=== PATIENT | male | born 1960 | race Caucasian/White ===

== ENCOUNTER 2017-12-13 09:05 | Inpatient (IN) | payer SELFPAY ==
[~2017-12-13] VITALS: Ht 177.8 cm; Wt 101.5 kg
[2017-12-13] MEDS ORDERED: SODIUM CHLORIDE FLUSH 10ML SYR IVF ONE (14:00)
[2017-12-13 14:16] LABS: MEAN CORPUSCULAR HGB CONC 32.4 g/dL (33.2-36.2); MEAN CORPUSCULAR VOLUME 89.6 fL (81-97); MEAN PLATELET VOLUME 9.6 fL (7.4-10.4); PLATELET COUNT 222 x10^3/uL (130-400); RED BLOOD COUNT 4.88 x10^6/uL (4.38-5.82); RED CELL DISTRIBUTION WIDTH 12.2 % (9.4-14.8)
[2017-12-13 14:17] LABS: INTERNATIONAL NORMALIZED RATIO 0.99 (0.93-1.1); PROTHROMBIN TIME 10.2 Seconds (9.6-11.5)
[2017-12-13 14:22] LABS: ALBUMIN 3.1 g/dL (3.4-5.0); ANION GAP 13 mmol/L (5-15); CHLORIDE 95 mmol/L (98-107); CREATININE 0.82 mg/dL (0.7-1.3)
[2017-12-13] MEDS ORDERED: CEFTRIAXONE PMX 1GM/50ML 50 ML ONE (14:39)
[2017-12-13] MEDS ORDERED: SODIUM CHLORIDE 0.9% 1,000 ML IV ONE (14:42)
[2017-12-13 14:58] LABS: MD YES
[2017-12-13 15:00] LABS: <PLATELET ESTIMATE> ADEQUATE; <PLT MORPHOLOGY> NORMAL PLT MORPH; <RBC MORPHOLOGY> NORMAL; BAND#(MANUAL) 0.68 x10^3/uL; BANDS%(MANUAL) 4 % (0-7); LYMPH#(MANUAL) 0.51 x10^3/uL (1-3.4); LYMPHS% (MANUAL) 3 % (22-44); MONOS#(MANUAL) 1.86 x10^3/uL (0.3-2.7); MONOS% (MANUAL) 11 % (2-9); SEG#(MANUAL) 13.86 x10^3/uL (1.8-6.8); SEGS% (MANUAL) 82 % (42-75)
[2017-12-13] MEDS ORDERED: DOCUSATE 100 MG CAPSULE PO PRN (15:00)
[2017-12-13] MEDS ORDERED: LABETALOL 5MG/ML, 20ML IVPush PRN (15:00)
[2017-12-13] MEDS ORDERED: CEFTRIAXONE PMX 1GM/50ML 50 ML IVPB ONE (15:00)
[2017-12-13] MEDS ORDERED: POLYETHYLENE GLYCOL 17 GM PACKET PO PRN (15:00)
[2017-12-13] MEDS ORDERED: morphine SULFATE 10 MG/ML, 1ML IVPush PRN (15:00)
[2017-12-13] MEDS ORDERED: DIPHTHERIA-TETANUS ADULT 0.5ML IM-VACC ONE (15:00)
[2017-12-13] MEDS ORDERED: SODIUM CHLORIDE FLUSH 10ML SYR IVF PRN (15:00)
[2017-12-13] MEDS ORDERED: BISACODYL 10 MG SUPP PR PRN (15:00)
[2017-12-13] MEDS ORDERED: VANCOMYCIN PER PHARMACY MC PRN (15:00)
[2017-12-13] MEDS: AMPICILLIN/SULBACTAM 3 GM in SODIUM CHLORIDE 0.9% 100 ML IV SCH ×2 (15:00→23:58)
[2017-12-13] MEDS ORDERED: ACETAMINOPHEN 325 MG TABLET PO PRN ×2 (15:00→18:30)
[2017-12-13] MEDS ORDERED: DIPH,PERTUSS(ACELL),TET VAC/PF 0.5 ML IM-VACC ONE (15:30)
[2017-12-13 15:38] LABS: HEMOGLOBIN A1C 11.7 % (4.2-6.3)
[2017-12-13 15:55] VITALS: BP 168/83
[2017-12-13] MEDS: ONDANSETRON 2MG/ML, 2ML IVPush PRN (15:57)
[2017-12-13] MEDS: INSULIN LISPRO 100 UNITS/ML, PEN SQ-INSULIN SCH (16:00)
[2017-12-13] MEDS ORDERED: PHARMACOKINETIC MONITORING MC PRN (16:30)
[2017-12-13] MEDS ORDERED: PHARMACOKINETIC CONSULTATION MC ONE (16:30)
[2017-12-13] MEDS ORDERED: MIDAZOLAM 1 MG/ML, 2ML ONE (17:19)
[2017-12-13] MEDS ORDERED: FENTANYL PF 250 MCG/5ML ONE (17:19)
[2017-12-13] MEDS ORDERED: BACITRACIN 50,000 UNIT ONE (17:21)
[2017-12-13] MEDS ORDERED: SUCCINYLCHOLINE 20 MG/ML, 10ML ONE (17:58)
[2017-12-13] MEDS ORDERED: DEXAMETHASONE 4 MG/ML, 1ML ONE (17:58)
[2017-12-13] MEDS ORDERED: ONDANSETRON 2MG/ML, 2ML ONE (17:58)
[2017-12-13] MEDS ORDERED: CEFAZOLIN 1,000 MG ONE (17:58)
[2017-12-13] MEDS ORDERED: ALBUTEROL/IPRATROPIUM 2.5MG/0.5MG, 3 ML NPPB PRN (18:30)
[2017-12-13] MEDS ORDERED: MIDAZOLAM 1 MG/ML, 2ML IV PRN (18:30)
[2017-12-13] MEDS ORDERED: LABETALOL 5MG/ML, 20ML IV PRN (18:30)
[2017-12-13] MEDS ORDERED: MEPERIDINE/PF 25MG/0.5ML IVPush PRN (18:30)
[2017-12-13] MEDS ORDERED: PROMETHAZINE 12.5 MG SUPP PR PRN (18:30)
[2017-12-13] MEDS ORDERED: PROMETHAZINE 25 MG/ML, 1ML IV PRN (18:30)
[2017-12-13] MEDS ORDERED: HYDROmorphone 1 MG/ML, 1ML IV PRN (18:30)
[2017-12-13] MEDS ORDERED: ONDANSETRON 2MG/ML, 2ML IVPush PRN (18:30)
[2017-12-13] MEDS ORDERED: DIAZEPAM 5 MG/ML, 2ML IVPush PRN (18:30)
[2017-12-13] MEDS ORDERED: OXYcodone 5 MG/5 ML ORAL.SOL UDC PO PRN (18:30)
[2017-12-13] MEDS ORDERED: hydrALAzine 20 MG/ML, 1ML IV PRN (18:30)
[2017-12-13] MEDS ORDERED: FENTANYL PF 100 MCG/2ML ONE (18:46)
[2017-12-13] MEDS ORDERED: ACETAMINOPHEN 650 MG/20.3 ML UDC ONE (18:46)
[2017-12-13] MEDS ORDERED: OXYcodone 5 MG/5 ML ORAL.SOL UDC ONE (18:46)
[2017-12-13] MEDS: FENTANYL PF 100 MCG/2ML IV PRN ×3 (18:51→19:29)
[2017-12-13 19:58] VITALS: BP 115/67
[2017-12-14 00:06] VITALS: BP 122/71
[2017-12-14] MEDS: OXYcodone/APAP 5/325MG TABLET PO PRN ×3 (00:19→16:58)
[2017-12-14] MEDS: NS + 20MEQ KCL 1,000 ML IV SCH ×2 (00:19→16:58)
[2017-12-14] MEDS: INSULIN LISPRO 100 UNITS/ML, PEN SQ-INSULIN SCH ×5 (00:20→20:13)
[2017-12-14] MEDS: ONDANSETRON 2MG/ML, 2ML IVPush PRN ×3 (00:28→16:58)
[2017-12-14] MEDS: VANCOMYCIN 2,000 MG in SODIUM CHLORIDE 0.9% 500 ML IV SCH ×2 (01:42→20:13)
[2017-12-14 04:43] LABS: MEAN CORPUSCULAR HGB CONC 33.6 g/dL (33.2-36.2); MEAN CORPUSCULAR VOLUME 89.3 fL (81-97); MEAN PLATELET VOLUME 9.1 fL (7.4-10.4); PLATELET COUNT 215 x10^3/uL (130-400); RED BLOOD COUNT 4.27 x10^6/uL (4.38-5.82); RED CELL DISTRIBUTION WIDTH 12.7 % (9.4-14.8)
[2017-12-14 04:54] LABS: ANION GAP 10 mmol/L (5-15); CALCIUM 8.5 mg/dL (8.5-10.1); CHLORIDE 98 mmol/L (98-107)
[2017-12-14 04:57] LABS: CREATININE 0.98 mg/dL (0.7-1.3)
[2017-12-14 06:04] LABS: BASOPHILS # (AUTO) 0.02 x10^3/uL (0-0.1); BASOPHILS % (AUTO) 0 % (0-1); EOSINOPHILS % (AUTO) 0 % (1-7); LYMPHOCYTES # (AUTO) 1.05 x10^3/uL (1-3.4); LYMPHOCYTES % (AUTO) 5 % (22-44); MD SCAN; MONOCYTES # (AUTO) 2.42 x10^3/uL (0.2-0.8); MONOCYTES % (AUTO) 12 % (2-9); NEUTROPHILS # (AUTO) 16.23 x10^3/uL (1.8-6.8); NEUTROPHILS % (AUTO) 82 % (42-75)
[2017-12-14] MEDS: AMPICILLIN/SULBACTAM 3 GM in SODIUM CHLORIDE 0.9% 100 ML IV SCH ×2 (06:57→11:46)
[2017-12-14 07:03] VITALS: BP 122/61
[2017-12-14 07:19] VITALS: BP 115/67
[2017-12-14 13:41] VITALS: BP 118/70
[2017-12-14] MEDS: PIPERACILLIN/TAZO/PMX 3.375GM 50 ML IV SCH ×2 (16:58→23:14)
[2017-12-14] MEDS: CLINDAMYCIN PMX 900MG/50ML 50 ML IV SCH (17:55)
[2017-12-14 19:29] VITALS: BP 106/60
[2017-12-14] MEDS ORDERED: INSULIN GLARGINE 100 UNITS/ML, PEN SQ-INSULIN SCH (21:00)
[2017-12-15] MEDS: ONDANSETRON 2MG/ML, 2ML IVPush PRN ×3 (00:38→16:10)
[2017-12-15] MEDS: CLINDAMYCIN PMX 900MG/50ML 50 ML IV SCH ×3 (01:30→17:00)
[2017-12-15 02:36] VITALS: BP 149/79
[2017-12-15] MEDS: PIPERACILLIN/TAZO/PMX 3.375GM 50 ML IV SCH ×4 (04:33→23:02)
[2017-12-15 05:13] LABS: MEAN CORPUSCULAR HEMOGLOBIN 30.1 pg (27.5-34.5); MEAN CORPUSCULAR HGB CONC 33.6 g/dL (33.2-36.2); MEAN CORPUSCULAR VOLUME 89.5 fL (81-97); MEAN PLATELET VOLUME 8.3 fL (7.4-10.4); PLATELET COUNT 225 x10^3/uL (130-400); RED BLOOD COUNT 4.03 x10^6/uL (4.38-5.82); RED CELL DISTRIBUTION WIDTH 12.8 % (9.4-14.8)
[2017-12-15 05:31] LABS: ANION GAP 10 mmol/L (5-15); CALCIUM 8.2 mg/dL (8.5-10.1); CHLORIDE 97 mmol/L (98-107); CREATININE 1.05 mg/dL (0.7-1.3)
[2017-12-15] MEDS: OXYcodone/APAP 5/325MG TABLET PO PRN ×2 (05:50→20:12)
[2017-12-15 06:07] LABS: BASOPHILS # (AUTO) 0.06 x10^3/uL (0-0.1); BASOPHILS % (AUTO) 0 % (0-1); EOSINOPHILS % (AUTO) 1 % (1-7); LYMPHOCYTES % (AUTO) 6 % (22-44); MD SCAN; MONOCYTES # (AUTO) 1.67 x10^3/uL (0.2-0.8); MONOCYTES % (AUTO) 10 % (2-9); NEUTROPHILS # (AUTO) 14.29 x10^3/uL (1.8-6.8); NEUTROPHILS % (AUTO) 83 % (42-75)
[2017-12-15 07:43] VITALS: BP 143/84
[2017-12-15] MEDS: INSULIN LISPRO 100 UNITS/ML, PEN SQ-INSULIN SCH ×4 (07:47→20:13)
[2017-12-15] MEDS ORDERED: GADOBUTROL 10 MMOL/10 ML PFS ONE (11:27)
[2017-12-15 12:34] VITALS: BP 149/89
[2017-12-15] MEDS: VANCOMYCIN 2,000 MG in SODIUM CHLORIDE 0.9% 500 ML IV SCH (13:25)
[2017-12-15] MEDS: INSULIN GLARGINE 100 UNITS/ML, PEN SQ-INSULIN SCH (20:12)
[2017-12-15] MEDS: PROMETHAZINE 25 MG/ML, 1ML IM PRN (20:13)
[2017-12-15 20:27] VITALS: BP 131/78
[2017-12-16] MEDS: ONDANSETRON 2MG/ML, 2ML IVPush PRN ×3 (01:42→19:54)
[2017-12-16] MEDS: OXYcodone/APAP 5/325MG TABLET PO PRN ×3 (01:42→19:54)
[2017-12-16] MEDS: CLINDAMYCIN PMX 900MG/50ML 50 ML IV SCH ×3 (01:42→19:54)
[2017-12-16 02:18] VITALS: BP 126/81
[2017-12-16] MEDS: PIPERACILLIN/TAZO/PMX 3.375GM 50 ML IV SCH ×4 (05:41→23:46)
[2017-12-16 05:52] LABS: ALANINE AMINOTRANSFERASE 29 U/L (12-78); ALBUMIN 2.1 g/dL (3.4-5.0); ANION GAP 11 mmol/L (5-15); CALCIUM 8.7 mg/dL (8.5-10.1); CHLORIDE 100 mmol/L (98-107); CREATININE 1.23 mg/dL (0.7-1.3)
[2017-12-16 05:54] LABS: MEAN CORPUSCULAR HEMOGLOBIN 29.9 pg (27.5-34.5); MEAN CORPUSCULAR HGB CONC 33.7 g/dL (33.2-36.2); MEAN CORPUSCULAR VOLUME 88.8 fL (81-97); MEAN PLATELET VOLUME 8.3 fL (7.4-10.4); PLATELET COUNT 258 x10^3/uL (130-400); RED BLOOD COUNT 3.92 x10^6/uL (4.38-5.82); RED CELL DISTRIBUTION WIDTH 12.8 % (9.4-14.8)
[2017-12-16 06:13] LABS: ALKALINE PHOSPHATASE 147 U/L (45-117); BILIRUBIN,TOTAL 0.6 mg/dL (0.2-1.0); TOTAL PROTEIN 6.8 g/dL (6.4-8.2); VANCOMYCIN,TROUGH 11.7 mcg/mL (5.0-10.0)
[2017-12-16 06:17] VITALS: BP 125/80
[2017-12-16 06:48] LABS: MD YES
[2017-12-16 06:51] LABS: BAND#(MANUAL) 0.82 x10^3/uL; BANDS%(MANUAL) 6 % (0-7); BASOS#(MANUAL) 0.27 x10^3/uL (0-0.1); BASOS% (MANUAL) 2 % (0-1); EOS#(MANUAL) 0.68 x10^3/uL (0.0-0.4); EOS% (MANUAL) 5 % (1-7); LYMPH#(MANUAL) 1.36 x10^3/uL (1-3.4); LYMPHS% (MANUAL) 10 % (22-44); MONOS#(MANUAL) 1.36 x10^3/uL (0.3-2.7); MONOS% (MANUAL) 10 % (2-9); SEG#(MANUAL) 9.11 x10^3/uL (1.8-6.8); SEGS% (MANUAL) 67 % (42-75)
[2017-12-16 06:53] LABS: <PLATELET ESTIMATE> ADEQUATE; LARGE PLATELETS 1+; POLYCHROMASIA 1+
[2017-12-16 07:01] LABS: HCT (SEDRATE) 34.8 % (39.2-51.8)
[2017-12-16] MEDS: VANCOMYCIN 2,000 MG in SODIUM CHLORIDE 0.9% 500 ML IV SCH (08:50)
[2017-12-16] MEDS: INSULIN LISPRO 100 UNITS/ML, PEN SQ-INSULIN SCH ×4 (08:52→20:39)
[2017-12-16] MEDS ORDERED: INSULIN GLARGINE 100 UNITS/ML, PEN SQ-INSULIN SCH (10:00)
[2017-12-16] MEDS ORDERED: morphine SULFATE 10 MG/ML, 1ML ONE ×2 (12:31→12:34)
[2017-12-16] MEDS: MORPHINE SULFATE 4 MG/ML, 1ML IVPush PRN (12:37)
[2017-12-16 14:30] VITALS: BP 133/79
[2017-12-16 19:51] VITALS: BP 128/75
[2017-12-16] MEDS: INSULIN GLARGINE 100 UNITS/ML, PEN SQ-INSULIN SCH (20:40)
[2017-12-17] MEDS: MORPHINE SULFATE 4 MG/ML, 1ML IVPush PRN (00:57)
[2017-12-17] MEDS: VANCOMYCIN 2,000 MG in SODIUM CHLORIDE 0.9% 500 ML IV SCH (02:16)
[2017-12-17 03:08] VITALS: BP 139/75
[2017-12-17] MEDS: ONDANSETRON 2MG/ML, 2ML IVPush PRN ×2 (03:59→17:24)
[2017-12-17] MEDS: CLINDAMYCIN PMX 900MG/50ML 50 ML IV SCH ×3 (04:29→19:48)
[2017-12-17 05:42] LABS: MEAN CORPUSCULAR HEMOGLOBIN 29.9 pg (27.5-34.5); MEAN CORPUSCULAR HGB CONC 33.9 g/dL (33.2-36.2); MEAN CORPUSCULAR VOLUME 88.2 fL (81-97); MEAN PLATELET VOLUME 8.1 fL (7.4-10.4); PLATELET COUNT 289 x10^3/uL (130-400); RED BLOOD COUNT 3.88 x10^6/uL (4.38-5.82); RED CELL DISTRIBUTION WIDTH 13.1 % (9.4-14.8)
[2017-12-17 05:53] LABS: ANION GAP 9 mmol/L (5-15); CALCIUM 8.5 mg/dL (8.5-10.1); CHLORIDE 101 mmol/L (98-107)
[2017-12-17 05:54] LABS: CREATININE 1.29 mg/dL (0.7-1.3)
[2017-12-17] MEDS: PIPERACILLIN/TAZO/PMX 3.375GM 50 ML IV SCH ×3 (05:57→20:58)
[2017-12-17 05:59] VITALS: BP 145/87
[2017-12-17 06:53] LABS: BASOPHILS # (AUTO) 0.04 x10^3/uL (0-0.1); BASOPHILS % (AUTO) 0 % (0-1); EOSINOPHILS # (AUTO) 0.31 x10^3/uL (0-0.4); EOSINOPHILS % (AUTO) 3 % (1-7); LYMPHOCYTES % (AUTO) 10 % (22-44); MD SCAN; MONOCYTES # (AUTO) 1.42 x10^3/uL (0.2-0.8); MONOCYTES % (AUTO) 11 % (2-9); NEUTROPHILS # (AUTO) 9.44 x10^3/uL (1.8-6.8); NEUTROPHILS % (AUTO) 76 % (42-75)
[2017-12-17] MEDS: OXYcodone/APAP 5/325MG TABLET PO PRN ×2 (08:39→17:55)
[2017-12-17] MEDS: INSULIN LISPRO 100 UNITS/ML, PEN SQ-INSULIN SCH ×4 (08:41→20:58)
[2017-12-17] MEDS: INSULIN GLARGINE 100 UNITS/ML, PEN SQ-INSULIN SCH ×2 (08:45→20:59)
[2017-12-17 14:25] VITALS: BP 138/72
[2017-12-17] MEDS: PROMETHAZINE 25 MG/ML, 1ML IM PRN (18:12)
[2017-12-17 21:34] VITALS: BP 138/84
[2017-12-18 01:32] VITALS: BP 168/92
[2017-12-18] MEDS: PIPERACILLIN/TAZO/PMX 3.375GM 50 ML IV SCH ×4 (03:31→20:56)
[2017-12-18] MEDS: CLINDAMYCIN PMX 900MG/50ML 50 ML IV SCH ×3 (04:15→19:40)
[2017-12-18 06:01] LABS: BASOPHILS # (AUTO) 0.03 x10^3/uL (0-0.1); BASOPHILS % (AUTO) 0 % (0-1); EOSINOPHILS # (AUTO) 0.22 x10^3/uL (0-0.4); EOSINOPHILS % (AUTO) 2 % (1-7); LYMPHOCYTES # (AUTO) 0.95 x10^3/uL (1-3.4); LYMPHOCYTES % (AUTO) 8 % (22-44); MD NO; MEAN CORPUSCULAR HEMOGLOBIN 29.7 pg (27.5-34.5); MEAN CORPUSCULAR HGB CONC 33.4 g/dL (33.2-36.2); MEAN CORPUSCULAR VOLUME 88.9 fL (81-97); MEAN PLATELET VOLUME 8.2 fL (7.4-10.4); MONOCYTES # (AUTO) 1.17 x10^3/uL (0.2-0.8); MONOCYTES % (AUTO) 9 % (2-9); NEUTROPHILS # (AUTO) 10.12 x10^3/uL (1.8-6.8); NEUTROPHILS % (AUTO) 81 % (42-75); PLATELET COUNT 297 x10^3/uL (130-400); RED BLOOD COUNT 3.86 x10^6/uL (4.38-5.82); RED CELL DISTRIBUTION WIDTH 13.1 % (9.4-14.8)
[2017-12-18 06:07] LABS: ANION GAP 9 mmol/L (5-15); CALCIUM 8.3 mg/dL (8.5-10.1); CHLORIDE 101 mmol/L (98-107); CREATININE 1.39 mg/dL (0.7-1.3)
[2017-12-18 07:09] VITALS: BP 168/98
[2017-12-18] MEDS: INSULIN LISPRO 100 UNITS/ML, PEN SQ-INSULIN SCH ×4 (08:24→20:57)
[2017-12-18] MEDS: ONDANSETRON 2MG/ML, 2ML IVPush PRN ×3 (08:25→22:33)
[2017-12-18] MEDS: INSULIN GLARGINE 100 UNITS/ML, PEN SQ-INSULIN SCH ×2 (08:26→20:56)
[2017-12-18] MEDS: OXYcodone/APAP 5/325MG TABLET PO PRN ×2 (08:28→16:47)
[2017-12-18 15:38] VITALS: BP 144/81
[2017-12-18 20:12] VITALS: BP 150/85
[2017-12-19] MEDS: PROMETHAZINE 25 MG/ML, 1ML IM PRN (01:53)
[2017-12-19] MEDS: MORPHINE SULFATE 4 MG/ML, 1ML IVPush PRN (02:05)
[2017-12-19 02:30] VITALS: BP 159/94
[2017-12-19] MEDS: PIPERACILLIN/TAZO/PMX 3.375GM 50 ML IV SCH ×4 (02:57→21:44)
[2017-12-19] MEDS: CLINDAMYCIN PMX 900MG/50ML 50 ML IV SCH ×3 (03:30→18:15)
[2017-12-19] MEDS: INSULIN LISPRO 100 UNITS/ML, PEN SQ-INSULIN SCH ×5 (08:13→21:47)
[2017-12-19 08:18] VITALS: BP 168/90
[2017-12-19] MEDS: INSULIN GLARGINE 100 UNITS/ML, PEN SQ-INSULIN SCH ×2 (09:59→21:45)
[2017-12-19 10:25] LABS: ALANINE AMINOTRANSFERASE 26 U/L (12-78); ALBUMIN 2.5 g/dL (3.4-5.0); ANION GAP 6 mmol/L (5-15); CALCIUM 8.7 mg/dL (8.5-10.1); CHLORIDE 102 mmol/L (98-107); CREATININE 1.44 mg/dL (0.7-1.3)
[2017-12-19 10:27] LABS: ALKALINE PHOSPHATASE 132 U/L (45-117); BILIRUBIN,TOTAL 0.5 mg/dL (0.2-1.0); TOTAL PROTEIN 7.6 g/dL (6.4-8.2)
[2017-12-19 13:10] VITALS: BP 169/71
[2017-12-19 20:33] VITALS: BP 162/82
[2017-12-20] MEDS: PIPERACILLIN/TAZO/PMX 3.375GM 50 ML IV SCH ×4 (03:02→22:03)
[2017-12-20 03:26] VITALS: BP 139/77
[2017-12-20] MEDS: CLINDAMYCIN PMX 900MG/50ML 50 ML IV SCH ×3 (03:49→19:09)
[2017-12-20 04:48] LABS: HCT (SEDRATE) 36.4 % (39.2-51.8)
[2017-12-20 05:11] LABS: BASOPHILS # (AUTO) 0.02 x10^3/uL (0-0.1); BASOPHILS % (AUTO) 0 % (0-1); EOSINOPHILS % (AUTO) 3 % (1-7); LYMPHOCYTES # (AUTO) 1.09 x10^3/uL (1-3.4); LYMPHOCYTES % (AUTO) 11 % (22-44); MD NO; MEAN CORPUSCULAR HEMOGLOBIN 29.6 pg (27.5-34.5); MEAN CORPUSCULAR HGB CONC 33.3 g/dL (33.2-36.2); MEAN PLATELET VOLUME 7.7 fL (7.4-10.4); MONOCYTES # (AUTO) 1.08 x10^3/uL (0.2-0.8); MONOCYTES % (AUTO) 11 % (2-9); NEUTROPHILS # (AUTO) 7.88 x10^3/uL (1.8-6.8); NEUTROPHILS % (AUTO) 76 % (42-75); PLATELET COUNT 364 x10^3/uL (130-400); RED BLOOD COUNT 4.01 x10^6/uL (4.38-5.82); RED CELL DISTRIBUTION WIDTH 12.9 % (9.4-14.8)
[2017-12-20 07:42] VITALS: BP 168/94
[2017-12-20] MEDS: INSULIN GLARGINE 100 UNITS/ML, PEN SQ-INSULIN SCH ×2 (08:07→22:03)
[2017-12-20] MEDS: INSULIN LISPRO 100 UNITS/ML, PEN SQ-INSULIN SCH ×4 (08:07→22:04)
[2017-12-20 19:24] VITALS: BP 172/82
[2017-12-21] MEDS: PIPERACILLIN/TAZO/PMX 3.375GM 50 ML IV SCH ×4 (03:02→22:56)
[2017-12-21 03:15] VITALS: BP 172/93
[2017-12-21] MEDS: CLINDAMYCIN PMX 900MG/50ML 50 ML IV SCH ×3 (04:13→21:06)
[2017-12-21 05:46] LABS: BASOPHILS # (AUTO) 0.02 x10^3/uL (0-0.1); BASOPHILS % (AUTO) 0 % (0-1); EOSINOPHILS # (AUTO) 0.26 x10^3/uL (0-0.4); EOSINOPHILS % (AUTO) 3 % (1-7); LYMPHOCYTES # (AUTO) 1.13 x10^3/uL (1-3.4); LYMPHOCYTES % (AUTO) 13 % (22-44); MD NO; MEAN CORPUSCULAR HEMOGLOBIN 29.8 pg (27.5-34.5); MEAN CORPUSCULAR HGB CONC 33.7 g/dL (33.2-36.2); MEAN CORPUSCULAR VOLUME 88.3 fL (81-97); MEAN PLATELET VOLUME 8.1 fL (7.4-10.4); MONOCYTES # (AUTO) 0.96 x10^3/uL (0.2-0.8); MONOCYTES % (AUTO) 11 % (2-9); NEUTROPHILS # (AUTO) 6.08 x10^3/uL (1.8-6.8); NEUTROPHILS % (AUTO) 72 % (42-75); PLATELET COUNT 385 x10^3/uL (130-400); RED BLOOD COUNT 4.14 x10^6/uL (4.38-5.82); RED CELL DISTRIBUTION WIDTH 12.8 % (9.4-14.8)
[2017-12-21 07:27] VITALS: BP 176/91
[2017-12-21] MEDS: INSULIN LISPRO 100 UNITS/ML, PEN SQ-INSULIN SCH ×4 (07:58→21:14)
[2017-12-21] MEDS: INSULIN GLARGINE 100 UNITS/ML, PEN SQ-INSULIN SCH ×2 (08:00→21:15)
[2017-12-21 13:35] VITALS: BP 181/96
[2017-12-21 20:47] VITALS: BP 173/95
[2017-12-22 02:51] VITALS: BP 162/90
[2017-12-22] MEDS: PIPERACILLIN/TAZO/PMX 3.375GM 50 ML IV SCH ×4 (04:56→23:50)
[2017-12-22] MEDS: CLINDAMYCIN PMX 900MG/50ML 50 ML IV SCH ×3 (05:37→22:50)
[2017-12-22 07:40] VITALS: BP 169/92
[2017-12-22] MEDS: INSULIN LISPRO 100 UNITS/ML, PEN SQ-INSULIN SCH ×4 (07:54→20:21)
[2017-12-22] MEDS: INSULIN GLARGINE 100 UNITS/ML, PEN SQ-INSULIN SCH ×2 (07:55→20:22)
[2017-12-22 13:20] VITALS: BP 158/84
[2017-12-22 19:10] VITALS: BP 175/91
[2017-12-22] MEDS: HEPARIN 5,000 UNITS/ML, 1ML SQ SCH (21:36)
[2017-12-23 03:23] VITALS: BP 172/89
[2017-12-23] MEDS: HEPARIN 5,000 UNITS/ML, 1ML SQ SCH ×3 (05:00→20:39)
[2017-12-23] MEDS: PIPERACILLIN/TAZO/PMX 3.375GM 50 ML IV SCH ×4 (05:08→22:36)
[2017-12-23 05:28] LABS: ANION GAP 8 mmol/L (5-15); CALCIUM 9.1 mg/dL (8.5-10.1); CHLORIDE 101 mmol/L (98-107); CREATININE 1.45 mg/dL (0.7-1.3)
[2017-12-23 07:00] VITALS: BP 161/87
[2017-12-23] MEDS: INSULIN LISPRO 100 UNITS/ML, PEN SQ-INSULIN SCH ×4 (08:39→20:38)
[2017-12-23] MEDS: INSULIN GLARGINE 100 UNITS/ML, PEN SQ-INSULIN SCH ×2 (08:40→20:38)
[2017-12-23] MEDS: CLINDAMYCIN PMX 900MG/50ML 50 ML IV SCH ×3 (08:40→23:42)
[2017-12-23] MEDS: LISINOPRIL 5 MG TABLET PO SCH (10:46)
[2017-12-23] MEDS ORDERED: hydrALAzine 20 MG/ML, 1ML IV PRN (12:00)
[2017-12-23] MEDS ORDERED: PHARMACY MAY ADJ FOR RENAL FX MC PRN (12:00)
[2017-12-23] MEDS: metFORMIN 500 MG TABLET PO SCH ×2 (13:17→17:00)
[2017-12-23 13:54] VITALS: BP 99/62
[2017-12-23 19:23] VITALS: BP 146/84
[2017-12-24 03:57] VITALS: BP 148/89
[2017-12-24] MEDS: PIPERACILLIN/TAZO/PMX 3.375GM 50 ML IV SCH ×4 (04:52→22:54)
[2017-12-24] MEDS: HEPARIN 5,000 UNITS/ML, 1ML SQ SCH ×3 (04:52→20:49)
[2017-12-24 07:14] VITALS: BP 145/82
[2017-12-24 07:21] LABS: ANION GAP 9 mmol/L (5-15); CHLORIDE 102 mmol/L (98-107); CREATININE 1.51 mg/dL (0.7-1.3)
[2017-12-24] MEDS: CLINDAMYCIN PMX 900MG/50ML 50 ML IV SCH ×2 (09:23→18:23)
[2017-12-24] MEDS: LISINOPRIL 5 MG TABLET PO SCH (09:24)
[2017-12-24] MEDS: metFORMIN 500 MG TABLET PO SCH ×2 (09:24→17:14)
[2017-12-24] MEDS: INSULIN GLARGINE 100 UNITS/ML, PEN SQ-INSULIN SCH ×2 (09:25→20:49)
[2017-12-24] MEDS: INSULIN LISPRO 100 UNITS/ML, PEN SQ-INSULIN SCH ×4 (09:26→20:49)
[2017-12-24 13:56] VITALS: BP 122/76
[2017-12-24 19:22] VITALS: BP 138/79
[2017-12-25] MEDS: CLINDAMYCIN PMX 900MG/50ML 50 ML IV SCH ×3 (01:15→18:17)
[2017-12-25 01:58] VITALS: BP 130/69
[2017-12-25] MEDS: HEPARIN 5,000 UNITS/ML, 1ML SQ SCH ×3 (05:03→19:27)
[2017-12-25] MEDS: PIPERACILLIN/TAZO/PMX 3.375GM 50 ML IV SCH ×4 (05:03→23:42)
[2017-12-25 06:42] LABS: ANION GAP 6 mmol/L (5-15); CALCIUM 8.8 mg/dL (8.5-10.1); CHLORIDE 101 mmol/L (98-107); CREATININE 1.67 mg/dL (0.7-1.3)
[2017-12-25 07:55] VITALS: BP 146/83
[2017-12-25] MEDS: INSULIN GLARGINE 100 UNITS/ML, PEN SQ-INSULIN SCH ×2 (08:55→20:06)
[2017-12-25] MEDS: metFORMIN 500 MG TABLET PO SCH ×2 (08:56→18:16)
[2017-12-25] MEDS: INSULIN LISPRO 100 UNITS/ML, PEN SQ-INSULIN SCH ×4 (08:56→20:05)
[2017-12-25] MEDS: LISINOPRIL 5 MG TABLET PO SCH (08:56)
[2017-12-25 13:51] VITALS: BP 108/65
[2017-12-25 20:12] VITALS: BP 151/86
[2017-12-26] MEDS: CLINDAMYCIN PMX 900MG/50ML 50 ML IV SCH ×3 (01:41→17:09)
[2017-12-26 01:44] VITALS: BP 143/81
[2017-12-26] MEDS: HEPARIN 5,000 UNITS/ML, 1ML SQ SCH ×3 (05:10→20:59)
[2017-12-26] MEDS: PIPERACILLIN/TAZO/PMX 3.375GM 50 ML IV SCH ×4 (05:12→22:44)
[2017-12-26 07:02] VITALS: BP 131/82
[2017-12-26] MEDS: INSULIN LISPRO 100 UNITS/ML, PEN SQ-INSULIN SCH ×4 (07:51→21:20)
[2017-12-26] MEDS: metFORMIN 500 MG TABLET PO SCH ×2 (08:03→17:09)
[2017-12-26] MEDS: LISINOPRIL 5 MG TABLET PO SCH (08:03)
[2017-12-26] MEDS: INSULIN GLARGINE 100 UNITS/ML, PEN SQ-INSULIN SCH ×2 (08:03→21:20)
[2017-12-26 14:51] VITALS: BP 143/83
[2017-12-26 20:08] VITALS: BP 134/85
[2017-12-27] MEDS: CLINDAMYCIN PMX 900MG/50ML 50 ML IV SCH ×2 (01:04→08:31)
[2017-12-27] MEDS: HEPARIN 5,000 UNITS/ML, 1ML SQ SCH ×3 (03:56→21:30)
[2017-12-27] MEDS: PIPERACILLIN/TAZO/PMX 3.375GM 50 ML IV SCH ×2 (04:46→11:34)
[2017-12-27 04:47] VITALS: BP 142/90
[2017-12-27 05:36] LABS: ALBUMIN 2.6 g/dL (3.4-5.0); ANION GAP 8 mmol/L (5-15); CHLORIDE 102 mmol/L (98-107)
[2017-12-27 05:46] LABS: ALANINE AMINOTRANSFERASE 13 U/L (12-78); ALKALINE PHOSPHATASE 73 U/L (45-117); BILIRUBIN,TOTAL 0.4 mg/dL (0.2-1.0); CREATININE 1.57 mg/dL (0.7-1.3); TOTAL PROTEIN 7.8 g/dL (6.4-8.2)
[2017-12-27 05:58] LABS: BASOPHILS # (AUTO) 0.08 x10^3/uL (0-0.1); BASOPHILS % (AUTO) 1 % (0-1); EOSINOPHILS # (AUTO) 0.44 x10^3/uL (0-0.4); EOSINOPHILS % (AUTO) 6 % (1-7); LYMPHOCYTES # (AUTO) 0.98 x10^3/uL (1-3.4); LYMPHOCYTES % (AUTO) 12 % (22-44); MD NO; MEAN CORPUSCULAR HEMOGLOBIN 29.6 pg (27.5-34.5); MEAN CORPUSCULAR VOLUME 89.7 fL (81-97); MEAN PLATELET VOLUME 8.5 fL (7.4-10.4); MONOCYTES # (AUTO) 0.86 x10^3/uL (0.2-0.8); MONOCYTES % (AUTO) 11 % (2-9); NEUTROPHILS # (AUTO) 5.66 x10^3/uL (1.8-6.8); NEUTROPHILS % (AUTO) 71 % (42-75); PLATELET COUNT 456 x10^3/uL (130-400); RED CELL DISTRIBUTION WIDTH 12.8 % (9.4-14.8)
[2017-12-27 06:18] LABS: HCT (SEDRATE) 36.6 % (39.2-51.8)
[2017-12-27] MEDS ORDERED: ONDANSETRON 2MG/ML, 2ML IVPush PRN (07:00)
[2017-12-27] MEDS: INSULIN LISPRO 100 UNITS/ML, PEN SQ-INSULIN SCH ×4 (07:00→21:26)
[2017-12-27 07:20] VITALS: BP 136/79
[2017-12-27] MEDS: LACTATED RINGERS 1,000 ML IV SCH (08:30)
[2017-12-27] MEDS: LISINOPRIL 5 MG TABLET PO SCH (08:31)
[2017-12-27] MEDS: metFORMIN 500 MG TABLET PO SCH ×2 (08:31→17:03)
[2017-12-27] MEDS: INSULIN GLARGINE 100 UNITS/ML, PEN SQ-INSULIN SCH ×2 (08:32→21:26)
[2017-12-27 13:28] VITALS: BP 146/80
[2017-12-27] MEDS: AMPICILLIN/SULBACTAM 3 GM in SODIUM CHLORIDE 0.9% 100 ML IV SCH ×2 (14:21→19:33)
[2017-12-27 19:56] VITALS: BP 137/81
[2017-12-28] MEDS: AMPICILLIN/SULBACTAM 3 GM in SODIUM CHLORIDE 0.9% 100 ML IV SCH ×4 (01:13→20:19)
[2017-12-28 01:32] VITALS: BP 139/89
[2017-12-28] MEDS: LACTATED RINGERS 1,000 ML IV SCH (02:34)
[2017-12-28] MEDS: HEPARIN 5,000 UNITS/ML, 1ML SQ SCH ×3 (06:02→20:20)
[2017-12-28] MEDS: INSULIN LISPRO 100 UNITS/ML, PEN SQ-INSULIN SCH ×4 (07:00→20:20)
[2017-12-28 07:09] VITALS: BP 155/92
[2017-12-28 07:31] LABS: CREATININE 1.39 mg/dL (0.7-1.3)
[2017-12-28 08:30] VITALS: BP 141/91
[2017-12-28] MEDS: metFORMIN 500 MG TABLET PO SCH ×2 (11:25→17:03)
[2017-12-28] MEDS: LISINOPRIL 5 MG TABLET PO SCH (11:26)
[2017-12-28] MEDS: INSULIN GLARGINE 100 UNITS/ML, PEN SQ-INSULIN SCH ×2 (11:52→20:20)
[2017-12-28 13:28] VITALS: BP 152/84
[2017-12-28 19:05] VITALS: BP 160/88
[2017-12-29] MEDS: AMPICILLIN/SULBACTAM 3 GM in SODIUM CHLORIDE 0.9% 100 ML IV SCH ×4 (01:34→20:21)
[2017-12-29 02:14] VITALS: BP 138/81
[2017-12-29] MEDS: HEPARIN 5,000 UNITS/ML, 1ML SQ SCH ×3 (05:04→20:15)
[2017-12-29 08:52] VITALS: BP 140/84
[2017-12-29] MEDS: LISINOPRIL 5 MG TABLET PO SCH (09:14)
[2017-12-29] MEDS: metFORMIN 500 MG TABLET PO SCH ×2 (09:14→17:25)
[2017-12-29] MEDS: INSULIN GLARGINE 100 UNITS/ML, PEN SQ-INSULIN SCH ×2 (09:15→20:22)
[2017-12-29] MEDS: INSULIN LISPRO 100 UNITS/ML, PEN SQ-INSULIN SCH ×4 (09:15→20:15)
[2017-12-29] MEDS: METOCLOPRAMIDE 10MG TABLET PO SCH ×2 (13:17→21:32)
[2017-12-29 14:03] VITALS: BP 159/88
[2017-12-29 19:01] VITALS: BP 150/85
[2017-12-30 01:07] VITALS: BP 137/85
[2017-12-30] MEDS: AMPICILLIN/SULBACTAM 3 GM in SODIUM CHLORIDE 0.9% 100 ML IV SCH ×4 (02:32→20:16)
[2017-12-30] MEDS: HEPARIN 5,000 UNITS/ML, 1ML SQ SCH ×3 (04:25→19:44)
[2017-12-30] MEDS: METOCLOPRAMIDE 10MG TABLET PO SCH ×3 (04:25→19:43)
[2017-12-30 07:23] VITALS: BP 132/84
[2017-12-30] MEDS: LISINOPRIL 5 MG TABLET PO SCH (08:34)
[2017-12-30] MEDS: metFORMIN 500 MG TABLET PO SCH ×2 (08:34→17:49)
[2017-12-30] MEDS: INSULIN GLARGINE 100 UNITS/ML, PEN SQ-INSULIN SCH ×2 (08:44→20:17)
[2017-12-30] MEDS: INSULIN LISPRO 100 UNITS/ML, PEN SQ-INSULIN SCH ×4 (08:44→20:18)
[2017-12-30 14:14] VITALS: BP 147/84
[2017-12-30 19:42] VITALS: BP 163/93
[2017-12-31] MEDS: AMPICILLIN/SULBACTAM 3 GM in SODIUM CHLORIDE 0.9% 100 ML IV SCH ×4 (00:57→20:21)
[2017-12-31] MEDS: HEPARIN 5,000 UNITS/ML, 1ML SQ SCH ×3 (00:57→20:20)
[2017-12-31 01:28] VITALS: BP 148/89
[2017-12-31] MEDS: METOCLOPRAMIDE 10MG TABLET PO SCH (01:28)
[2017-12-31 06:18] LABS: BASOPHILS % (AUTO) 1 % (0-1); EOSINOPHILS # (AUTO) 0.53 x10^3/uL (0-0.4); EOSINOPHILS % (AUTO) 7 % (1-7); LYMPHOCYTES # (AUTO) 1.46 x10^3/uL (1-3.4); LYMPHOCYTES % (AUTO) 18 % (22-44); MD NO; MEAN CORPUSCULAR HEMOGLOBIN 29.2 pg (27.5-34.5); MEAN CORPUSCULAR HGB CONC 33.3 g/dL (33.2-36.2); MEAN CORPUSCULAR VOLUME 87.7 fL (81-97); MEAN PLATELET VOLUME 8.2 fL (7.4-10.4); MONOCYTES # (AUTO) 0.83 x10^3/uL (0.2-0.8); MONOCYTES % (AUTO) 10 % (2-9); NEUTROPHILS # (AUTO) 5.04 x10^3/uL (1.8-6.8); NEUTROPHILS % (AUTO) 63 % (42-75); PLATELET COUNT 427 x10^3/uL (130-400); RED BLOOD COUNT 4.38 x10^6/uL (4.38-5.82); RED CELL DISTRIBUTION WIDTH 12.8 % (9.4-14.8)
[2017-12-31 06:28] LABS: ANION GAP 9 mmol/L (5-15); CALCIUM 9.9 mg/dL (8.5-10.1); CHLORIDE 104 mmol/L (98-107); CREATININE 1.34 mg/dL (0.7-1.3)
[2017-12-31] MEDS: INSULIN LISPRO 100 UNITS/ML, PEN SQ-INSULIN SCH ×4 (07:00→20:24)
[2017-12-31 08:37] VITALS: BP 151/84
[2017-12-31] MEDS: LISINOPRIL 5 MG TABLET PO SCH (09:00)
[2017-12-31] MEDS: metFORMIN 500 MG TABLET PO SCH ×2 (09:09→17:39)
[2017-12-31] MEDS: INSULIN GLARGINE 100 UNITS/ML, PEN SQ-INSULIN SCH ×2 (09:10→20:27)
[2017-12-31 13:15] VITALS: BP 124/74
[2017-12-31 19:49] VITALS: BP 149/91
[2018-01-01 02:38] VITALS: BP 128/81
[2018-01-01] MEDS: AMPICILLIN/SULBACTAM 3 GM in SODIUM CHLORIDE 0.9% 100 ML IV SCH ×4 (02:50→20:39)
[2018-01-01] MEDS: HEPARIN 5,000 UNITS/ML, 1ML SQ SCH ×3 (05:00→20:39)
[2018-01-01] MEDS: INSULIN LISPRO 100 UNITS/ML, PEN SQ-INSULIN SCH ×4 (07:00→20:39)
[2018-01-01 07:08] VITALS: BP 144/90
[2018-01-01] MEDS: INSULIN GLARGINE 100 UNITS/ML, PEN SQ-INSULIN SCH ×2 (08:42→20:41)
[2018-01-01] MEDS: metFORMIN 500 MG TABLET PO SCH ×2 (08:42→16:25)
[2018-01-01] MEDS: LISINOPRIL 5 MG TABLET PO SCH (08:43)
[2018-01-01 14:24] VITALS: BP 141/89
[2018-01-01 19:32] VITALS: BP 126/67
[2018-01-02 01:57] VITALS: BP 135/78
[2018-01-02] MEDS: AMPICILLIN/SULBACTAM 3 GM in SODIUM CHLORIDE 0.9% 100 ML IV SCH ×4 (03:12→20:46)
[2018-01-02] MEDS: HEPARIN 5,000 UNITS/ML, 1ML SQ SCH ×3 (04:43→20:44)
[2018-01-02] MEDS: INSULIN LISPRO 100 UNITS/ML, PEN SQ-INSULIN SCH ×4 (07:00→20:44)
[2018-01-02] MEDS: LISINOPRIL 5 MG TABLET PO SCH (07:25)
[2018-01-02 07:47] VITALS: BP 128/85
[2018-01-02] MEDS: metFORMIN 500 MG TABLET PO SCH ×2 (07:53→17:24)
[2018-01-02] MEDS: INSULIN GLARGINE 100 UNITS/ML, PEN SQ-INSULIN SCH ×2 (07:54→21:04)
[2018-01-02 13:29] VITALS: BP 146/89
[2018-01-02 22:33] VITALS: BP 164/90
[2018-01-03 02:07] VITALS: BP 132/85
[2018-01-03] MEDS: AMPICILLIN/SULBACTAM 3 GM in SODIUM CHLORIDE 0.9% 100 ML IV SCH ×4 (03:07→20:31)
[2018-01-03] MEDS: HEPARIN 5,000 UNITS/ML, 1ML SQ SCH ×3 (04:28→20:18)
[2018-01-03 05:50] LABS: CHLORIDE 103 mmol/L (98-107)
[2018-01-03 06:06] LABS: ALANINE AMINOTRANSFERASE 15 U/L (12-78); ALBUMIN 2.8 g/dL (3.4-5.0); ALKALINE PHOSPHATASE 80 U/L (45-117); ANION GAP 8 mmol/L (5-15); BILIRUBIN,TOTAL 0.7 mg/dL (0.2-1.0); C-REACTIVE PROTEIN, QUANT 0.99 mg/dL (0.02-0.49); CALCIUM 8.7 mg/dL (8.5-10.1); CREATININE 1.23 mg/dL (0.7-1.3); TOTAL PROTEIN 7.8 g/dL (6.4-8.2)
[2018-01-03 06:14] LABS: BASOPHILS # (AUTO) 0.12 x10^3/uL (0-0.1); BASOPHILS % (AUTO) 2 % (0-1); EOSINOPHILS # (AUTO) 0.64 x10^3/uL (0-0.4); EOSINOPHILS % (AUTO) 9 % (1-7); LYMPHOCYTES # (AUTO) 1.23 x10^3/uL (1-3.4); LYMPHOCYTES % (AUTO) 18 % (22-44); MD NO; MEAN CORPUSCULAR HEMOGLOBIN 29.7 pg (27.5-34.5); MEAN CORPUSCULAR HGB CONC 33.9 g/dL (33.2-36.2); MEAN CORPUSCULAR VOLUME 87.8 fL (81-97); MEAN PLATELET VOLUME 8.6 fL (7.4-10.4); MONOCYTES # (AUTO) 0.82 x10^3/uL (0.2-0.8); MONOCYTES % (AUTO) 12 % (2-9); NEUTROPHILS # (AUTO) 4.19 x10^3/uL (1.8-6.8); NEUTROPHILS % (AUTO) 60 % (42-75); PLATELET COUNT 301 x10^3/uL (130-400); RED CELL DISTRIBUTION WIDTH 12.9 % (9.4-14.8)
[2018-01-03 06:37] LABS: HCT (SEDRATE) 38.4 % (39.2-51.8)
[2018-01-03] MEDS: INSULIN LISPRO 100 UNITS/ML, PEN SQ-INSULIN SCH ×4 (07:00→20:39)
[2018-01-03] MEDS: LISINOPRIL 5 MG TABLET PO SCH (07:19)
[2018-01-03] MEDS: metFORMIN 500 MG TABLET PO SCH ×2 (07:32→16:35)
[2018-01-03] MEDS: INSULIN GLARGINE 100 UNITS/ML, PEN SQ-INSULIN SCH ×2 (07:32→20:39)
[2018-01-03 07:41] VITALS: BP 142/88
[2018-01-03 13:52] VITALS: BP 139/89
[2018-01-03 19:21] VITALS: BP 156/88
[2018-01-04 01:40] VITALS: BP 149/82
[2018-01-04] MEDS: AMPICILLIN/SULBACTAM 3 GM in SODIUM CHLORIDE 0.9% 100 ML IV SCH ×4 (03:07→21:29)
[2018-01-04] MEDS: HEPARIN 5,000 UNITS/ML, 1ML SQ SCH ×3 (04:01→21:00)
[2018-01-04 07:30] VITALS: BP 155/92
[2018-01-04] MEDS: metFORMIN 500 MG TABLET PO SCH ×2 (08:06→16:46)
[2018-01-04] MEDS: LISINOPRIL 5 MG TABLET PO SCH (08:07)
[2018-01-04] MEDS: INSULIN LISPRO 100 UNITS/ML, PEN SQ-INSULIN SCH ×4 (08:07→21:00)
[2018-01-04] MEDS: INSULIN GLARGINE 100 UNITS/ML, PEN SQ-INSULIN SCH ×2 (09:37→21:30)
[2018-01-04 12:20] VITALS: BP 159/87
[2018-01-04 19:42] VITALS: BP 147/82
[2018-01-05] MEDS: AMPICILLIN/SULBACTAM 3 GM in SODIUM CHLORIDE 0.9% 100 ML IV SCH ×4 (03:12→20:38)
[2018-01-05] MEDS: HEPARIN 5,000 UNITS/ML, 1ML SQ SCH ×3 (04:04→20:39)
[2018-01-05 05:09] VITALS: BP 136/77
[2018-01-05 07:00] VITALS: BP 139/83
[2018-01-05] MEDS: INSULIN LISPRO 100 UNITS/ML, PEN SQ-INSULIN SCH ×4 (07:00→20:40)
[2018-01-05] MEDS: LISINOPRIL 5 MG TABLET PO SCH (08:13)
[2018-01-05] MEDS: metFORMIN 500 MG TABLET PO SCH ×2 (08:35→17:15)
[2018-01-05] MEDS: INSULIN GLARGINE 100 UNITS/ML, PEN SQ-INSULIN SCH ×2 (08:36→20:39)
[2018-01-05 13:35] VITALS: BP 167/94
[2018-01-05 19:28] VITALS: BP 112/77
[2018-01-06] MEDS: AMPICILLIN/SULBACTAM 3 GM in SODIUM CHLORIDE 0.9% 100 ML IV SCH ×4 (03:11→21:19)
[2018-01-06 03:33] VITALS: BP 130/85
[2018-01-06] MEDS: HEPARIN 5,000 UNITS/ML, 1ML SQ SCH ×3 (03:54→21:00)
[2018-01-06] MEDS: INSULIN LISPRO 100 UNITS/ML, PEN SQ-INSULIN SCH ×4 (07:00→21:18)
[2018-01-06 07:10] VITALS: BP 125/75
[2018-01-06] MEDS: LISINOPRIL 5 MG TABLET PO SCH (08:04)
[2018-01-06] MEDS: metFORMIN 500 MG TABLET PO SCH ×2 (09:22→17:25)
[2018-01-06] MEDS: INSULIN GLARGINE 100 UNITS/ML, PEN SQ-INSULIN SCH ×2 (09:22→21:18)
[2018-01-06 13:58] VITALS: BP 144/84
[2018-01-06 19:16] VITALS: BP 144/93
[2018-01-07 00:50] VITALS: BP 133/78
[2018-01-07] MEDS: AMPICILLIN/SULBACTAM 3 GM in SODIUM CHLORIDE 0.9% 100 ML IV SCH ×4 (03:14→20:53)
[2018-01-07] MEDS: HEPARIN 5,000 UNITS/ML, 1ML SQ SCH ×3 (03:58→20:54)
[2018-01-07] MEDS: INSULIN LISPRO 100 UNITS/ML, PEN SQ-INSULIN SCH ×4 (07:00→20:54)
[2018-01-07] MEDS: LISINOPRIL 5 MG TABLET PO SCH (08:46)
[2018-01-07] MEDS: metFORMIN 500 MG TABLET PO SCH ×2 (08:53→17:25)
[2018-01-07] MEDS: INSULIN GLARGINE 100 UNITS/ML, PEN SQ-INSULIN SCH ×2 (08:54→20:54)
[2018-01-07 14:45] VITALS: BP 136/89
[2018-01-07 19:23] VITALS: BP 123/75
[2018-01-08 00:26] VITALS: BP 122/69
[2018-01-08] MEDS: AMPICILLIN/SULBACTAM 3 GM in SODIUM CHLORIDE 0.9% 100 ML IV SCH ×4 (03:13→21:31)
[2018-01-08] MEDS: HEPARIN 5,000 UNITS/ML, 1ML SQ SCH ×3 (05:00→21:31)
[2018-01-08] MEDS: INSULIN LISPRO 100 UNITS/ML, PEN SQ-INSULIN SCH ×4 (07:00→21:32)
[2018-01-08 07:20] VITALS: BP 146/92
[2018-01-08] MEDS: LISINOPRIL 5 MG TABLET PO SCH ×2 (08:51→08:53)
[2018-01-08] MEDS: metFORMIN 500 MG TABLET PO SCH ×2 (08:51→17:02)
[2018-01-08] MEDS: INSULIN GLARGINE 100 UNITS/ML, PEN SQ-INSULIN SCH ×2 (08:52→21:31)
[2018-01-08 13:50] VITALS: BP 149/86
[2018-01-08 20:46] VITALS: BP 121/80
[2018-01-09 01:32] VITALS: BP 140/89
[2018-01-09] MEDS: AMPICILLIN/SULBACTAM 3 GM in SODIUM CHLORIDE 0.9% 100 ML IV SCH ×3 (03:18→15:51)
[2018-01-09] MEDS: HEPARIN 5,000 UNITS/ML, 1ML SQ SCH ×3 (06:23→20:52)
[2018-01-09] MEDS: INSULIN LISPRO 100 UNITS/ML, PEN SQ-INSULIN SCH ×4 (07:00→20:52)
[2018-01-09 07:28] VITALS: BP 161/93
[2018-01-09] MEDS: INSULIN GLARGINE 100 UNITS/ML, PEN SQ-INSULIN SCH ×2 (08:58→20:52)
[2018-01-09] MEDS: metFORMIN 500 MG TABLET PO SCH ×2 (08:59→15:56)
[2018-01-09] MEDS: LISINOPRIL 5 MG TABLET PO SCH (08:59)
[2018-01-09] MEDS ORDERED: METF500T PO (13:45)
[2018-01-09] MEDS ORDERED: LISI5TAB7 PO (13:45)
[2018-01-09] MEDS ORDERED: INSU100I13 SQ-INSULIN ×2 (13:45)
[2018-01-09 19:31] VITALS: BP 135/80
[2018-01-09] MEDS: AMOXICILLIN/CLAV 500-125MG TABLET PO SCH (20:48)
[2018-01-10 03:37] VITALS: BP 127/74
[2018-01-10] MEDS: AMOXICILLIN/CLAV 500-125MG TABLET PO SCH ×2 (04:46→11:52)
[2018-01-10] MEDS: HEPARIN 5,000 UNITS/ML, 1ML SQ SCH ×2 (04:46→11:52)
[2018-01-10 05:29] LABS: BASOPHILS # (AUTO) 0.12 x10^3/uL (0-0.1); BASOPHILS % (AUTO) 2 % (0-1); EOSINOPHILS # (AUTO) 1.03 x10^3/uL (0-0.4); EOSINOPHILS % (AUTO) 17 % (1-7); LYMPHOCYTES # (AUTO) 1.12 x10^3/uL (1-3.4); LYMPHOCYTES % (AUTO) 19 % (22-44); MD NO; MEAN CORPUSCULAR HEMOGLOBIN 28.8 pg (27.5-34.5); MEAN CORPUSCULAR HGB CONC 33.3 g/dL (33.2-36.2); MEAN CORPUSCULAR VOLUME 86.4 fL (81-97); MEAN PLATELET VOLUME 9.1 fL (7.4-10.4); MONOCYTES # (AUTO) 0.82 x10^3/uL (0.2-0.8); MONOCYTES % (AUTO) 14 % (2-9); NEUTROPHILS # (AUTO) 2.92 x10^3/uL (1.8-6.8); NEUTROPHILS % (AUTO) 49 % (42-75); PLATELET COUNT 218 x10^3/uL (130-400); RED BLOOD COUNT 3.97 x10^6/uL (4.38-5.82); RED CELL DISTRIBUTION WIDTH 12.7 % (9.4-14.8)
[2018-01-10 05:33] LABS: ANION GAP 8 mmol/L (5-15); CALCIUM 8.8 mg/dL (8.5-10.1); CHLORIDE 101 mmol/L (98-107)
[2018-01-10 05:36] LABS: ALANINE AMINOTRANSFERASE 25 U/L (12-78); ALKALINE PHOSPHATASE 88 U/L (45-117); BILIRUBIN,TOTAL 0.7 mg/dL (0.2-1.0); C-REACTIVE PROTEIN, QUANT 0.55 mg/dL (0.02-0.49); CREATININE 1.17 mg/dL (0.7-1.3); TOTAL PROTEIN 7.9 g/dL (6.4-8.2)
[2018-01-10 06:24] LABS: HCT (SEDRATE) 34.3 % (39.2-51.8)
[2018-01-10 08:00] VITALS: BP 119/75
[2018-01-10] MEDS: INSULIN LISPRO 100 UNITS/ML, PEN SQ-INSULIN SCH ×3 (09:10→16:13)
[2018-01-10] MEDS: metFORMIN 500 MG TABLET PO SCH ×2 (09:10→16:12)
[2018-01-10] MEDS: LISINOPRIL 5 MG TABLET PO SCH (09:10)
[2018-01-10] MEDS: INSULIN GLARGINE 100 UNITS/ML, PEN SQ-INSULIN SCH (09:11)
[2018-01-10 14:30] VITALS: BP 137/80
[2018-01-10] MEDS ORDERED: AMOX1TAB61 PO (15:59)
== END 2018-01-10 16:39 | disposition home or self-care (01) | DRG 854 ==
LOC: ED 13:57 → EDIP 14:43 → 3NE 15:46 → DCLOUNGE 01-10 16:30
PROVIDERS: ADMIT Internal Medicine; ATTEND Family Medicine
PROC: 0JBK0ZZ Excision of Left Hand Subcutaneous Tissue and Fascia, Open Approach (ICD-10-PCS; principal; 2017-12-13 18:30)
DX: A41.9 Sepsis, unspecified organism (principal); E44.0 Moderate protein-calorie malnutrition; E11.22 Type 2 diabetes mellitus with diabetic chronic kidney disease; E11.65 Type 2 diabetes mellitus with hyperglycemia; E87.1 Hypo-osmolality and hyponatremia; L02.512 Cutaneous abscess of left hand; L03.114 Cellulitis of left upper limb; D63.8 Anemia in other chronic diseases classified elsewhere; E66.9 Obesity, unspecified; I12.9 Hypertensive chronic kidney disease with stage 1 through stage 4 chronic kidney disease, or unspecified chronic kidney disease; J44.9 Chronic obstructive pulmonary disease, unspecified; M65.9 Synovitis and tenosynovitis, unspecified; N18.2 Chronic kidney disease, stage 2 (mild); W26.0XXA Contact with knife, initial encounter; Z66 Do not resuscitate; Z79.84 Long term (current) use of oral hypoglycemic drugs; Z82.49 Family history of ischemic heart disease and other diseases of the circulatory system; Z91.11 Patient's noncompliance with dietary regimen; Z91.14 Patient's other noncompliance with medication regimen; Z91.19 Patient's noncompliance with other medical treatment and regimen; Z91.5 Personal history of self-harm; Z68.32 Body mass index [BMI] 32.0-32.9, adult; B95.1 Streptococcus, group B, as the cause of diseases classified elsewhere
CPT/HCPCS: 36415; 80048; 80053; 80202; 82040; 82565; 82962; 83036; 83605; 83735; 85025; 85610; 85651; 85730; 86140; 87015; 87040; 87070; 87075; 87102; 87116; 87147; 87205; 87206; 90471; 90714; 93005; 96365; A9585; J0295; J0690; J0696; J1100; J1644; J2250; J2405; J2543; J2550; J3010; J3370; J3480; J0330; J1815; J2270; J7040; J7120